=== PATIENT | female | born 1960 | race Caucasian/White ===

== ENCOUNTER 2021-12-18 17:30 | Emergency (ER) | payer SELFPAY ==
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
[2021-12-18] MEDS ORDERED: MORPHINE SULFATE 4 MG INJ IV ONE (18:18)
[2021-12-18] MEDS ORDERED: Zofran 4 MG/2 ML VIAL IV ONE (18:18)
[2021-12-18] MEDS ORDERED: MORPHINE SULFATE 4 MG INJ ONE (18:32)
[2021-12-18] MEDS ORDERED: Zofran 4 MG/2 ML VIAL ONE (18:32)
[2021-12-18 18:50] LABS: Absolute Neutrophil Ct (ANC) 7.41 x10^3/uL (1.4-6.9); Basophil (Absolute #) 0.01 x10^3/uL (0-0.4); Eosinophil (Absolute #) 0 x10^3/uL (0-0.5); Hematocrit 28.4 % (35-47); Hemoglobin 9.2 g/dL (12.0-16.0); Lymphocyte (Absolute #) 2.43 x10^3/uL (1.0-4.6); Lymphocytes % 23.5 % (24.0-44.0); Mean Cell Volume 92.8 fL (78-100); Mean Corpuscular Hemoglobin 30.1 pg (26-32); Mean Corpuscular Hgb Concent. 32.4 g/dL (32-36); Mean Platelet Volume 10.1 fL (7.5-11.0); Monocyte (Absolute #) 0.37 x10^3/uL (0.0-1.3); Monocytes % 3.6 % (0.0-12.0); Neutrophil % 71.7 % (36.0-66.0); Platelet Count 208 x10^3/uL (150-450); Red Blood Count 3.06 x10^6/uL (4.1-5.4); Red Cell Distribution Width 14.8 % (11.5-14.0); White Blood Count 10.3 x10^3/uL (4.0-10.5)
[2021-12-18 19:07] LABS: INR 0.97 (0.8-3.0); PROTIME 10.3 SECONDS (9.4-12.5)
[2021-12-18 19:09] LABS: ALBUMIN 3.9 g/dL (3.5-5.0); ANION GAP 13.3 MEQ/L (5-15); BILIRUBIN,TOTAL 0.2 mg/dL (0.2-1.3); Calcium 8.7 mg/dL (8.4-10.2); Creatinine 1 1.56 mg/dL (0.52-1.04); EST GLOMERULAR FILTRATION RATE 35.7 ML/MIN; Potassium 3.8 mmol/L (3.5-5.1); Total Protein 6.7 g/dL (6.3-8.2)
[2021-12-18 20:18] VITALS: BP 159/72
[2021-12-18 20:39] VITALS: PULSE 42; O2SAT 96
[2021-12-18] MEDS ORDERED: PERCOCET TABLET 5/325MG PO STA (20:39)
[2021-12-18] MEDS ORDERED: PERCOCET TABLET 5/325MG ONE (20:43)
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
== END 2021-12-18 21:05 | disposition home or self-care (01) ==
LOC: ED 17:30
DX: S42.022A Displaced fracture of shaft of left clavicle, initial encounter for closed fracture (principal); V50.6XXA Passenger in pick-up truck or van injured in collision with pedestrian or animal in traffic accident, initial encounter; D64.9 Anemia, unspecified; R00.1 Bradycardia, unspecified; M25.512 Pain in left shoulder; R07.89 Other chest pain; I10 Essential (primary) hypertension; E78.5 Hyperlipidemia, unspecified; Z79.899 Other long term (current) drug therapy
CPT/HCPCS: 36000; 36415; 71045; 73000; 73030; 80053; 84484; 85025; 85610; 93005; 93041; 94760; 96374; 96375; 99284; J2270; J2405; A9270-GY

== ENCOUNTER 2023-06-22 11:07 | Emergency (ER) | payer OTHER ==
[2023-06-22 11:44] VITALS: RESP 18; TEMP 97.9; O2SAT 97
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
--- NOTE | 2023-06-22 12:05 | XRAY ---
Indication: Pain following fall. Comparison: None 3 view right knee demonstrates osteopenia, moderate/advanced tricompartmental degenerative changes with tiny lateral heterotopic ossification, and small posterior fabella. No acute findings.
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
[2023-06-22 12:15] VITALS: BP 131/65; PULSE 50
== END 2023-06-22 12:25 | disposition home or self-care (01) ==
LOC: ED 11:07
DX: Z04.3 Encounter for examination and observation following other accident (principal); M54.50 Low back pain, unspecified; M25.561 Pain in right knee; I10 Essential (primary) hypertension; Z79.899 Other long term (current) drug therapy
CPT/HCPCS: 71046; 73562; 99282